=== PATIENT | male | born 1960 | race Caucasian/White ===

== ENCOUNTER → 2021-05-02 | Outpatient (CLI) | payer OTHER | LOC: M.LAB 10:22 | PROVIDERS: ATTEND Podiatrist | DX: Z01.812 Encounter for preprocedural laboratory examination (principal); Z20.822 Contact with and (suspected) exposure to COVID-19 ==

== ENCOUNTER → 2021-06-20 | Outpatient (CLI) | payer OTHER ==
[~2021-06-20] MED LIST: B-125000 MC1 SUBLING; FLOMAX0.4 MG PO; LEVO-T100 MCG PO; NORVASC10 MG PO
== END ==
LOC: M.LAB 12:21
PROVIDERS: ATTEND Podiatrist
DX: Z01.812 Encounter for preprocedural laboratory examination (principal); Z20.822 Contact with and (suspected) exposure to COVID-19

== ENCOUNTER → 2021-06-21 | Day surgery (SDC) | payer OTHER ==
--- NOTE | ~2021-06-21 | OP ---
[address] [address] OPERATIVE REPORT Name: COURTNEY CRISTINA Room: [facility].#: [id number] Admission: 06/21/21 Attend Phys: Carmen Madden, Discharge: Date of : 62 Report #: [id number] THIS REPORT FOR: cc: Jennifer Mackay MD, Molly MD Gonzalez,Carmen Bateman DPM ~ DATE OF SURGERY: 06/21/2021 SURGEON: Carmen Madden DPM GLASS CHECKER: None. PREOPERATIVE DIAGNOSES: Painful retained hardware, left foot, left foot pain. POSTOPERATIVE DIAGNOSES: Painful retained hardware, left foot, left foot pain. PROCEDURE PERFORMED: Removal of hardware, left fifth metatarsal. PATHOLOGY: None. ANESTHESIA: MAC with local. HEMOSTASIS: Pneumatic ankle tourniquet at 250 mmHg. ESTIMATED BLOOD LOSS: 1 mL. MATERIALS USED: 2-0 Vicryl and 4-0 nylon. INJECTABLES: A 7 mL of 1:1 mixture of 0.5% Marcaine plain and 1% lidocaine plain. COMPLICATIONS: None. PROCEDURE IN DETAILS: The patient was brought to the operating room and placed on the operating room table in the supine position. A pneumatic ankle tourniquet was then placed about the patient's left ankle with adequate padding noted. Local time-out was performed. The patient was then placed under MAC anesthesia at this time. A local infiltrative block was then placed across the surgical site of the patient's left foot utilizing 7 mL of 1:1 mixture of 0.5% Marcaine plain and 1% lidocaine plain. The patient's left foot was then scrubbed, prepped and draped in the usual aseptic manner and the extremity was then exsanguinated utilizing an Esmarch bandage with a pneumatic ankle tourniquet then being inflated to 250 mmHg. Attention was then directed to the dorsal aspect of the patient's fifth metatarsophalangeal joint where a previous scar [place] [address] OPERATIVE REPORT Name: COURTNEY CRISTINA Room: [facility].#: [id number] Admission: 06/21/21 Attend Phys: Carmen Madden, Discharge: Date of : 62 Report #: [id number] A C-arm was then utilized at this time in order to visualize the placement of the underlying single screw in the fifth metatarsal head. Once this positioning was made, a #15 blade was then made through full thickness through the skin and soft tissue down to the level of bone. A hemostat was then also used at this time in order to further dissect at this time. Next, a [place] elevator was then utilized in order to remove any soft tissue and periosteum surrounding the screw at this time, screw head was then visualized. At this time, there was no stripping of the head of the screw; however, there was noted to be multiple threads dorsally exposed the screw, which indicated that the screw had been loose and was backing out and then upon removal of the screw utilizing a hemostat across the head of the screw, it was easily backed out at this time. Surgical site was then copiously irrigated with sterile normal saline and intraoperative fluoroscopy pictures were also taken at this time to confirm that all screws and material was removed at this time. Examination of the fifth metatarsal head and previous osteotomy site was noted to be mostly healed; however, there was still some movement noted to the fifth metatarsal head at this time. The deep soft tissue structures were reapproximated utilizing 2-0 Vicryl and the skin reapproximated utilizing 4-0 nylon in a horizontal stitch fashion. The pneumatic ankle tourniquet was also deflated at this time. There was a prompt hyperemic response noted to all digits of the patient's left lower extremity. The site was then cleansed and dried and dressed with Xeroform, 4 x 4 gauze, Kerlix, and Coban at this time. The patient tolerated the procedure and anesthesia well and was transported from the operating room to the recovery room with vital signs stable and neurovascular status intact to the left lower extremity. By: [id number] Madden DPM /susie
[2021-06-21 10:10] LABS: HEMATOCRIT 36.8 % (42.0-52.0); HEMOGLOBIN 12.1 gm/dL (14.0-18.0); MCH 30.8 pg (26.0-34.0); MCV 93.4 fL (80.0-100.0); MPV 7.1 fl. (7.2-11.1); RBC 3.94 mil/uL (4.50-6.00); RDW-CV 15.6 % (10.5-14.5); WBC 6.2 thou/uL (4.0-11.0)
[2021-06-21 10:54] LABS: CALCIUM 7.9 mg/dL (8.5-10.1); CREATININE 1.3 mg/dL (0.6-1.3); POTASSIUM 3.5 mmol/L (3.5-5.1)
--- NOTE | 2021-06-21 14:39 | EKG ---
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: [facility] [place] 1960 Requested By: Yanick Jimenes Order Number: [id number] Carin MD: Sid Lujan Measurements Intervals [place] Rate: 71 P: 47 SC: 197 QRS: -34 QRSD: 112 T: 44 QT: 409 QTc: 445 Interpretive Statements Sinus rhythm Borderline IVCD with LAD Baseline wander in lead(s) V1 No previous ECG available for comparison Electronically Signed On 06-21-2021 14:39:27 PRINCIPAL ANDROID DEVELOPER by Sid Lujan [email or web address] <ELECTRONICALLY SIGNED> By: Sid Lujan MD, [facility] 06/21/21 1439 1022 1022 Sid Lujan MD, [facility] /EPI
== END | disposition home or self-care (01) ==
LOC: M.SUR 06:42
PROVIDERS: Anesthesiology; ATTEND Podiatrist
DX: T84.84XA Pain due to internal orthopedic prosthetic devices, implants and grafts, initial encounter (principal); M79.672 Pain in left foot; Z79.899 Other long term (current) drug therapy; Z88.8 Allergy status to other drugs, medicaments and biological substances; Y83.8 Other surgical procedures as the cause of abnormal reaction of the patient, or of later complication, without mention of misadventure at the time of the procedure